=== PATIENT | female | born 1965 | race African-American/Black ===

== ENCOUNTER 2016-09-05 10:31 | Emergency (ER) | payer OTHER ==
[~2016-09-05 10:31] MED LIST: LORTAB 5/500 TA1 TA1 PO
== END 2016-09-05 10:59 | disposition home or self-care (01) ==
LOC: CFTX 10:31 → CED 10:31 → CFTX 10:59
DX: T78.40XA Allergy, unspecified, initial encounter (principal)
CPT/HCPCS: 99282

== ENCOUNTER → 2016-09-20 | Outpatient (CLI) | payer OTHER ==
[2016-09-20 11:53] LABS: BASOPHIL% 0.8 % (0-2.5); EOSINOPHIL# 0.3 X10e3 (0-0.7); EOSINOPHIL% 7.1 % (0.0-7.0); HEMATOCRIT 41.5 % (35.0-45.0); HEMOGLOBIN 13.2 gm/dL (12.0-16.0); LYMPHOCYTE# 1.9 X10e3 (1.0-3.5); LYMPHOCYTE% 38.8 % (17.0-45.0); MEAN CELL VOLUME 83.7 FL (83-96); MEAN CORPUSCULAR HEMOGLOBIN 26.6 PG (28-34); MEAN CORPUSCULAR HGB CONC 31.7 g/dL (30-36); MEAN PLATELET VOLUME 9.1 FL (6.5-11.5); MONOCYTE# 0.5 X10e3 (0-1.0); NEUTROPHIL# 2.1 X10e3 (1.5-7.1); NEUTROPHIL% 43.3 % (40-75); PLATELET COUNT 158 X10e3 (140-420); RED BLOOD COUNT 4.96 X10e (3.90-5.30); RED CELL DISTRIBUTION WIDTH 15.3 % (11.0-15.5); WHITE BLOOD COUNT 4.8 X10e3 (4.0-10.5)
[2016-09-20 12:04] LABS: DIFF IND NO
[2016-09-21 16:44] LABS: COMPLEMENT C3 144 mg/dL (90-180); COMPLEMENT C4 33 mg/dL (16-47)
[2016-09-28 20:05] LABS: C1 ESTERASE INHIBITOR FUNCTNAL 83 % (>=68)
== END | disposition home or self-care (01) ==
LOC: CLAB 10:59
PROVIDERS: Allergy & Immunology
DX: T78.3XXA Angioneurotic edema, initial encounter (principal)
CPT/HCPCS: 36415; 85025; 86160; 86161